=== PATIENT | male | born 1965 | race Caucasian/White ===

== ENCOUNTER 2019-01-24 15:53 | Emergency (ER) | payer OTHER ==
[2019-01-24] MEDS ORDERED: PROPARACAINE 0.5% 15 ML OPHT DROP ONE (15:58)
[2019-01-24] MEDS ORDERED: FLUORESCEIN SODIUM 1 MG STRIP OP ONE (15:58)
[2019-01-24] MEDS ORDERED: OFLOXACIN 0.3% SOLN PREPACK OPHT.BTL TAKEHOME ONE (16:48)
--- NOTE | 2019-01-24 16:50 | EDPHY ---
H & P Time Seen by Provider: 01/24/19 16:02 HPI/ROS: CHIEF COMPLAINT: Metal foreign body in eye HISTORY OF PRESENT ILLNESS: 49-year-old male was grinding metal last night, wearing safety glasses, he felt like something flipped into his left eye. Initially felt relatively well but has developed a foreign body sensation in the eye. No visual changes reported. He tells me his daughter thought she could see something in the eye. No fever, chills, chest pain, shortness of breath, palpitations, vomiting, diarrhea, urinary complaints, headache, lightheadedness. REVIEW OF SYSTEMS: A comprehensive 10 system review of systems was reviewed and is otherwise negative aside from elements mentioned in the history of present illness and medical decision making. PAST MEDICAL HISTORY: Patient denies. Unsure when his last tetanus shot was. 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 GENERAL APPEARANCE: Pleasant, no obvious distress. FOCUSED EXAM OF left eye: Eyelid: No edema, erythema or swelling. Pupils: 3 mm Round and reactive to light EOMI Conjunctivae: No injection, no discharge. Cornea: Exam with fluorescein shows metallic foreign body over the medial inferior quadrant of the iris. No Brandon sign. Anterior chamber: Normal, no hyphema or hypopyon Skin: No proptosis, no periorbital erythema or swelling, no vesicles. Smoking Status: Never smoked Constitutional: Initial Vital Signs Temperature (C) 36.7 C 01/24/19 15:57 Heart Rate 59 L 01/24/19 15:57 Respiratory Rate 16 01/24/19 15:57 Blood Pressure 126/88 H 01/24/19 15:57 O2 Sat (%) 98 01/24/19 15:57 O2 Delivery Mode Room Air Allergies/Adverse Reactions: No Known Allergies Allergy (Verified 01/24/19 15:57) Home Medications: Medication Instructions Recorded NK [No Known Home Meds] 02/04/16 Medical Decision Making Procedures: Procedure: Foreign body removal from cornea: Anesthesia: Topical. After verbal consent from the patient, an attempt to remove the embedded metallic foreign body was removed from the cornea of the left eye. The foreign body was partially removed manually using a eye spud as well as the luh for rust ring removal. There were no complications and the patient tolerated the procedure well. The procedure was performed by myself. ED Course/Re-evaluation: Small metallic foreign body was visualized. This was unable to be removed with the with the eye Spud and a single pass with the luh was used to remove a portion of the foreign body. Patient then had his eye irrigated. On re- examination he has a small metallic fragment still visible. He was referred to follow up tomorrow with Ophthalmology for removal of the residual foreign body as well as evaluation of any rust ring which may remain. Differential Diagnosis: Differential diagnosis for the patient's presenting complaints includes corneal abrasion, corneal foreign body, open globe, intra orbital foreign body. - Data Points Medications Given: Discontinued Medications Hydrocodone Bitart/Acetaminophen ([place] 5/325mg Prepack#6) 1 btl TAKEHOME EDNOW ONE Stop: 01/24/19 17:06 Last Admin: 01/24/19 17:21 Dose: 1 btl Diphtheria/Tetanus/Acell Pertussis (Boostrix) 0.5 ml IM .ONCE ONE Stop: 01/24/19 17:24 Last Admin: 01/24/19 17:26 Dose: 0.5 ml Ofloxacin (Ocuflox 0.3% Opht Drops Prepack) 1 btl TAKEHOME EDNOW ONE Stop: 01/24/19 16:49 Last Admin: 01/24/19 17:22 Dose: 1 btl Departure - Departure Disposition: Home, Routine, Self-Care Clinical Impression: Foreign body of left eye Condition: Fair Instructions: Hydrocodone/Acetaminophen (By mouth), Ofloxacin (Into the eye), Eye Foreign Body (ED) Additional Instructions: Please use the eye drops as directed. 1-2 drops every 2-3 hours while awake. Follow-up tomorrow without fail with Ophthalmology. There is residual foreign body still in your eye along with possibility of the small rust ring. Okay to take Tylenol, ibuprofen, or hydrocodone as needed for pain. Referrals: Mart Fernandez MD [Medical Doctor] - As per Instructions (Call the office tomorrow for an appointment within the next day)
[2019-01-24] MEDS ORDERED: HYDROCOD/APAP 5/325 PREPACK#6 BTL TAKEHOME ONE (17:05)
[2019-01-24] MEDS ORDERED: TDAP ADULT 0.5 ML INJ (BOOSTRIX) IM ONE (17:23)
[2019-01-24 17:31] VITALS: BP 119/87
== END 2019-01-24 17:39 | disposition home or self-care (01) ==
PROC: 08C1XZZ Extirpation of Matter from Left Eye, External Approach (ICD-10-PCS; principal; 2019-01-24)
DX: T15.02XA Foreign body in cornea, left eye, initial encounter (principal); W26.8XXA Contact with other sharp object(s), not elsewhere classified, initial encounter